=== PATIENT | female | born 1970 | race Hispanic/Latino ===

== ENCOUNTER 2022-07-08 13:15 | Emergency (ER) | payer BC ==
[~2022-07-08 13:15] MED LIST: Iopamidol 370 76% 100 ML VIAL ONE
[2022-07-08] MEDS ORDERED: Ondansetron PF 4 MG/2 ML Vial ONE (13:47)
[2022-07-08] MEDS ORDERED: Morphine 4 MG/ML VIAL ONE ×2 (13:47→17:26)
[2022-07-08 13:48] LABS: #Eosinphils 0.1 thou/uL (0.0-0.7); #Lymphocytes 1.5 thou/uL (1.20-3.40); #Monocytes 0.5 thou/uL (0.11-0.59); #Neutrophils 4.3 thou/uL (1.40-6.50); %Basophils 0.7 % (0.0-1.0); %Eosinophils 0.9 % (0.0-10.0); %Lymphocytes 23.8 % (21.0-51.0); %Monocytes 8.4 % (0.0-10.0); %Neutrophils 66.2 % (42.0-75.0); Hemoglobin 11.9 g/dL (12.0-16.0); Mean Corpuscular HGB CONC 30.9 g/dL (32.0-36.0); Mean Corpuscular Hemoglobin 26.6 pg (27.0-31.0); Mean Corpuscular Volume 86.2 fL (78.0-98.0); Mean Platelet Volume 8.6 fL (7.4-10.4); Platelet Count 204 thou/uL (130-400); RBC Distribution Width 14.5 % (11.5-14.5); Red Blood Cell (RBC) Count 4.48 mill/uL (4.20-5.40); White Blood Cell (WBC) Count 6.5 thou/uL (4.8-10.8)
[2022-07-08 14:00] LABS: BHCG - Serum Negative (NEGATIVE)
[2022-07-08 14:01] LABS: Pregs Control Bar Appear? YES (CONTROL BAR)
[2022-07-08 14:02] LABS: ALT (SGPT) 19 U/L (8-55); AST (SGOT) 17 U/L (5-34); Alkaline Phosphatase 91 U/L (40-110); Anion Gap 16 mmol/L (10-20); BUN (Urea Nitrogen) 16 mg/dL (7.0-18.7); Bilirubin, Total 0.3 mg/dL (0.2-1.2); Calc. Creatinine Clearance 0 mL/min (70-130); Calcium 9.2 mg/dL (7.8-10.44); Carbon Dioxide 23 mmol/L (22-29); Chloride 106 mmol/L (98-107); Estimated GFR 97; Globulin 3.2 g/dL (2.4-3.5); Glucose 112 mg/dL (70-105); Lipase 9 U/L (8-78); Magnesium 1.8 mg/dL (1.6-2.6); Potassium 3.4 mmol/L (3.5-5.1); Protein, Total 7.2 g/dL (6.0-8.3); Sodium 142 mmol/L (136-145)
[2022-07-08] MEDS ORDERED: Nitroglycerin 2% Ointment 1 INCH/1 GM Packet ONE (16:47)
[2022-07-08] MEDS ORDERED: Aspirin Chewable 81 MG TAB ONE (16:47)
[2022-07-08 17:05] LABS: Troponin I 0.011 ng/mL (< 0.028)
[2022-07-08 17:06] LABS: Bilirubin Negative (Negative); Blood, Urine Trace (Negative); Clarity Clear (Clear); Glucose, Urine (Dipstick) Negative (Negative); Ketone, Urine Trace mg/dL (Negative); Leukocyte Trace (Negative); Nitrite Negative (Negative); Protein, Urine (Dipstick) Negative (Neg-Trace); Urobilinogen 0.2 mg/dL (Less than 2)
[2022-07-08 17:11] LABS: RBC/HPF 0-3 HPF (0-3); WBC/HPF 0-3 HPF (0-3)
[2022-07-08 17:12] LABS: Bacteria/HPF None Seen HPF (None Seen); Squamous Epithelial 0-3 HPF (0-3)
[2022-07-08 17:33] LABS: SARS-CoV-2 NAA Rapid Test Not Detected (NotDetected)
[2022-07-08] MEDS ORDERED: Ketorolac Tromethamine 30 MG/ML VIAL ONE (18:59)
[2022-07-08 20:52] LABS: Troponin I Less than 0.010 ng/mL (< 0.028)
== END 2022-07-08 21:10 | disposition short-term general hospital (02) ==
LOC: NAV ERS 13:15
DX: I10 Essential (primary) hypertension (principal); R07.9 Chest pain, unspecified; Z20.822 Contact with and (suspected) exposure to COVID-19; E03.9 Hypothyroidism, unspecified; Z79.899 Other long term (current) drug therapy
CPT/HCPCS: 36415; 71045; 74177; 80053; 81003; 81015; 83690; 83735; 84484; 84703; 85025; 85379; 93005; 94760; 96374; 96375; 96376; J1885; J2270; J2405; Q9967; U0002